=== PATIENT | female | born 1940 | race Two or more races ===

== ENCOUNTER 2024-11-08 18:50 | Emergency (ER) | payer OTHER, MEDICAID, SELFPAY ==
[2024-11-08 19:25] VITALS: PULSE 87; RESP 18; O2SAT 98; BMI 45.3
--- NOTE | 2024-11-08 19:41 | PD.EDRME ---
Rapid Medical Screening Exam RME Arrival date/time: 11/08/24 18:50 Chief Complaint: Urogenital-Female Time Seen by Provider: 11/08/24 19:40 Vital signs: Vital Signs Temperature 98.3 F 11/08/24 19:47 Pulse Rate 77 11/08/24 19:47 Respiratory Rate 15 11/08/24 19:47 Blood Pressure 135/76 H 11/08/24 19:47 Pulse Oximetry (%) 96 11/08/24 19:47 Oxygen Delivery Method Room Air 11/08/24 19:47 RME Narrative: 84-year-old female, brought in by ambulance from home, presents to the emergency department with concerns of urinary retention. Per family, she has been experiencing progressively decreased urinary output, described as scant voiding. The patient reports a persistent sensation of incomplete bladder emptying, noting discomfort and an urge to urinate without significant relief. MD Attestation MD Attestation Scribe Attestation: I, Marin Paredes, am scribing for and in the presence of Dr. Obrien. Provider Notation: Although this document has been carefully reviewed, there may still be some phonetic and other typographical errors. These errors are purely grammatical due to imperfections in the software program and should not be construed in any way to compromise the substance of the patient's medical care during this visit.
[2024-11-08 19:47] VITALS: BP 135/76; PULSE 77; RESP 15; TEMP 36.8; O2SAT 96
[2024-11-08 20:32] LABS: Basophils % (Auto) 1 % (0-2.5); Eosinophils # (Auto) 0.1 Thou/mm3 (0.0-0.5); Eosinophils % (Auto) 4 % (0-10); Hematocrit 42.3 % (36.0-46.0); Immature Granulocytes % (Auto) 1 % (0-0); Immature Granulocytes Auto 0.02 Thou/mm3 (0.00-0.00); Lymphocytes # (Auto) 0.6 Thou/mm3 (1.0-4.8); Lymphocytes % (Auto) 15 % (10-50); Mean Corpuscular HGB Conc 33.1 g/dl (31.0-37.0); Mean Corpuscular Hemoglobin 32.1 pg (25.0-35.0); Mean Corpuscular Volume 97 fL (80-100); Monocytes # (Auto) 0.4 Thou/mm3 (0.0-0.8); Monocytes % (Auto) 9 % (0-12); Neutrophils # (Auto) 2.9 Thou/mm3 (1.8-7.7); Neutrophils % (Auto) 72 % (37-80); Nucleated Red Blood Cell % 0 /100 WBC (0); Platelet Count 175 Thou/mm3 (140-440); RDW Standard Deviation 44.6 fL (36.4-46.3); Red Blood Count 4.36 Miln/mm3 (4.00-5.20)
--- NOTE | 2024-11-08 20:35 | PD.EDFMALE ---
ED Female Urogenital RME/HPI General Chief complaint: Urogenital-Female Stated complaint: URINARY RETENTION Time Seen by Provider: 11/08/24 19:40 Source: EMS Arrival date/time: 11/08/24 18:50 Mode of arrival: EMS Limitations: no limitations RME / HPI RME / HPI Narrative: Dr. Obrien?s Main ED Evaluation: 84-year-old female, brought in by ambulance from home, presents to the emergency department with concerns of urinary retention. Per family, she has been experiencing progressively decreased urinary output, described as scant voiding. The patient reports a persistent sensation of incomplete bladder emptying, noting discomfort and an urge to urinate without significant relief. Related Data Home Medications ?Medication ?Instructions ?Recorded ?Confirmed oxybutynin chloride 5 mg tablet 5 mg PO BID #0 tabs 08/28/14 03/27/24 simvastatin 20 mg tablet (Zocor) 20 mg PO HS #0 tabs 08/28/14 03/27/24 apixaban 5 mg tablet (Eliquis) 5 mg PO BID 05/17/19 03/27/24 hydrocodone 7.5 mg-acetaminophen 1 tab PO QID PRN Pain 05/17/19 03/27/24 325 mg tablet ([place]) carvedilol 3.125 mg tablet (Coreg) 3.125 mg PO BID 03/29/21 03/27/24 losartan 50 mg tablet 100 mg PO QDAY 03/29/21 03/27/24 alendronate 70 mg tablet 70 mg PO QWEEK 03/27/24 03/27/24 furosemide 40 mg tablet (Lasix) 40 mg PO QDAY 03/27/24 03/27/24 gabapentin 300 mg capsule 300 mg PO BID 03/27/24 03/27/24 Previous Rx's ?Medication ?Instructions ?Recorded fluconazole 200 mg tablet 400 mg (2 x 200 mg) PO QDAY [place] 03/29/24 Fever 1 month #60 tabs cephalexin 500 mg capsule 500 mg PO BID #6 caps 04/24/24 cephalexin 500 mg capsule 500 mg PO TID #21 caplets 11/08/24 Allergies Allergy/AdvReac Type Severity Reaction Status Date / Time No Known Allergies Allergy Verified 11/08/24 19:28 Review of Systems Review of Systems Systems Reviewed: All systems reviewed, normal except as documented Past Medical History Past Medical History NEUROLOGIC: Negative Neurological Disorders or Seizures CARDIAC: Positive Cardiac Disorders, Atrial Fibrillation, Hypercholesterolemia, Congestive Heart Failure and Hypertension RESPIRATORY: Negative Chronic Obstructive Pulmonary Disease (COPD) or Asthma GASTROINTESTINAL: Negative Gastrointestinal Disorders GENITOURINARY: Positive Genitourinary Disorders; Negative Renal Disease REPRODUCTIVE: Positive Previous Pregnancies; Negative Breast Cancer or Pelvic Inflammatory Disease MUSCULOSKELETAL: Positive Musculoskeletal Disorders, Arthritis and Osteoporosis ENT: Positive Cataracts ENDOCRINE: Negative Endocrine Disorders, Diabetes Mellitus Type 1 or Diabetes Mellitus Type 2 HEMATOLOGIC: Negative Blood Disorders or Sickle Cell Disease OTHER HISTORY: Negative Autoimmune Disease, Blood Transfusions, Blood Transfusion Reaction, Anesthesia Reactions, Organ Transplant, MRSA or Breast Cancer Family History FAMILY HISTORY: Positive Family Cancer Surgical History SURGICAL: Positive Abdominal Surgery and Joint Replacement; Negative Neurologic Surgery, Mastectomy or Organ Transplant Social History SMOKING STATUS: Unknown if ever smoked ED Exam General Limitations: Present no limitations General appearance: Present alert and in no apparent distress Head Head exam: Present atraumatic Eye Eye exam: Present normal appearance, PERRL and EOMI ENT ENT exam: Present normal exam, normal oropharynx and mucous membranes moist Neck Neck exam: Present normal inspection, full ROM and trachea midline Chest Chest inspection: Present normal inspection and symmetric chest wall rise Respiratory Respiratory exam: Present normal lung sounds bilaterally Cardiovascular Cardiovascular exam: Present regular rate, normal rhythm and normal heart sounds Abdominal Exam Abdominal exam: Present soft and normal bowel sounds Extremities Exam Extremities exam: Present normal inspection and full ROM Back Exam Back exam: Present normal inspection and full ROM Neurological Exam Neurological exam: Present alert, oriented X3 and CN II-XII intact Psychiatric Psychiatric exam: Present normal affect and normal mood Skin Skin exam: Present warm, dry, intact and normal color Course Quality Measures none Orders Category Date Time Status Straight [In and Out Catheter] X1 Care 11/08/24 19:47 Completed CBC Stat Lab 11/08/24 20:14 Completed CMP [Comprehensive Metabolic Panel] Stat Lab 11/08/24 20:14 Completed Urinalysis, C/S if Indicated Stat Lab 11/08/24 20:44 Completed Urine Culture Stat Lab 11/08/24 20:44 Received cefTRIAXone [Rocephin] 1,000 mg Med 11/08/24 21:27 Discontinued SODIUM CHLORIDE 0.9% ([place]) [NS 0.9% ([place])] 50 ml IV X1 Vital Signs Vital signs: Vital Signs Temperature 98.3 F 11/08/24 19:47 Pulse Rate 77 11/08/24 19:47 Respiratory Rate 15 11/08/24 19:47 Blood Pressure 135/76 H 11/08/24 19:47 Pulse Oximetry (%) 96 11/08/24 19:47 Oxygen Delivery Method Room Air 11/08/24 19:47 Urogenital - Female MDM Narrative MDM Narrative:: 2127: The patient?s granddaughter is present in the room and expresses understanding of and comfort with the discharge plan. The patient is clinically stable and feels well enough to go home. No new concerns were raised at this time. Scribe Attestation: I, Marin Paredes, am scribing for and in the presence of Dr. Obrien. Provider Notation: Although this document has been carefully reviewed, there may still be some phonetic and other typographical errors. These errors are purely grammatical due to imperfections in the software program and should not be construed in any way to compromise the substance of the patient's medical care during this visit. Patient data External records reviewed:: [facility] previous records and EMS form Clinical information provided by:: patient, EMS and family Social determinants that could affect healthcare access:: none Patient has the following chronic illnesses:: see PMH How is presenting disease/condition affected by chronic disease/condition?: uneffected by Evaluation data The following diagnostics were reviewed and interpreted by me:: lab results Lab and/or radiology exams considered but not ordered:: na Interpretation Summary: UTI Medications / Prescriptions Medications or Prescriptions considered but not ordered:: na Medication administrations:: Medication Administration History Discontinued Medications Ceftriaxone Sodium 1,000 mg/ (Sodium Chloride) 50 mls @ 100 mls/hr IV X1 ONE Stop: 11/08/24 21:56 Last Infusion: 11/08/24 22:29 Dose: Infused Documented By: Admin: 11/08/24 21:58 Dose: 100 mls/hr Documented By: EF see above, if any Consultations Consultation(s) initiated? (list below): No Diagnosis Urogenital Female Differential Diagnosis: urinary tract infection, ovarian cyst and cystitis Most likely diagnosis given after review of the tests above:: see clinical impression Admission Indicated Admission indicated?: not indicated Admission Request Was there a request for admission?: No Disposition Plan Disposition Plan: Discharge Discharge Attestation Discharge Attestation: The patient and all family members were given an opportunity to ask questions and understood the discharge instructions. Discharge instructions specifically effects, indications for sooner follow up or return to the emergency department, and the expected course of current diagnosis. Patient condition: Stable Discharge Plan Plan Patient Disposition: HOME (Self Care) Patient condition on transfer: Stable Prescriptions/Referrals Prescriptions/Med Rec: New cephalexin 500 mg capsule 500 mg PO TID Qty: 21 0RF No Action simvastatin [Zocor] 20 MG tablet 20 mg PO HS Qty: 0 oxybutynin chloride 5 MG tablet 5 mg PO BID Qty: 0 Eliquis 5 mg Tablet 5 mg PO BID hydrocodone-acetaminophen [[place]] 7.5-325 mg Tablet 1 tab PO QID PRN (Reason: Pain) losartan 50 mg tablet 100 mg PO QDAY Patient Comments: TAKE 1 TABLET BY MOUTH EVERY DAY carvedilol [Coreg] 3.125 mg Tablet 3.125 mg PO BID furosemide [Lasix] 40 mg Tablet 40 mg PO QDAY gabapentin 300 mg capsule 300 mg PO BID Patient Comments: TAKE 1 CAPSULE BY MOUTH TWICE A DAY alendronate 70 mg tablet 70 mg PO QWEEK Patient Comments: PLEASE SEE ATTACHED FOR DETAILED DIRECTIONS fluconazole 200 mg tablet 400 mg PO QDAY 30 Days Qty: 60 2RF cephalexin 500 mg capsule 500 mg PO BID Qty: 6 0RF Problem List Clinical Impression: Urinary tract infection Patient/Caregiver Discharge Instructions Education Materials: Urinary Tract Infections in Women Additional Instructions: 1. DO READ your discharge instructions as these contain important information concerning your medical care. 2. If medication has been prescribed for your condition, fill the prescription as soon as possible and follow the directions on the medication. 3. RETURN AT ONCE TO THE EMERGENCY DEPARTMENT if you have any problems or concerns. These include but are not limited to fever, worsening pain(belly, chest, head, etc?), shortness of breath, inability to tolerate food and water, or any condition that makes you question your well-being. Also, if your symptoms do not improve in the next 12-24 hours, return to the ER or seek medical care immediately. Please follow-up with her primary care in 72 hours to get the results of the urine culture 4. Be sure to follow up with your regular physician or specialist as instructed at discharge as this is the best way to ensure that you receive the very best of care. If you do not have a primary care physician, please contact a physician group and make an appointment. 5. Please visit [employer] for coupons regarding your prescriptions. It is a free service for you to use and can help reduce the cost of your medication. We would like to thank you for coming today and our hope is that we served you and your family well during your stay Print Language: [place] Stand Alone Forms: [employer]., Patient Portal Info Letter
--- NOTE | 2024-11-08 20:48 | PC.NURSE ---
250ml urine output
[2024-11-08 20:49] LABS: Collection Type, Urine Catheter
[2024-11-08 20:57] LABS: Alanine Aminotransferase 12 U/L (10-49); Albumin/Globulin Ratio 1.4 (1.2-2.2); Alkaline Phosphatase 107 U/L (46-116); Anion Gap 8 (7-16); Aspartate Amino Transferase 23 U/L (0-34); BUN/Creatinine Ratio 48 Ratio (12-20); Bilirubin,Total 0.7 mg/dL (0.3-1.2); Blood Urea Nitrogen 24 mg/dL (9-23); Calcium 9.9 mg/dL (8.3-10.6); Calcium (Corrected) 9.9 mg/dL (8.5-10.1); Carbon Dioxide 34.2 mMol/L (20.0-31.0); Chloride 102 mMol/L (98-107); Creatinine (Component) 0.5 mg/dL (0.6-1.3); Estimated Creatinine Clearance 102.8 mL/min (>60); Globulin 2.8 gm/dL (2.3-3.5); Glucose 117 mg/dL (74-106); Osmolality,Calculated 291 (275-295); Potassium 3.9 mMol/L (3.4-5.1); Sodium 144 mMol/L (136-145); Total Protein 6.8 gm/dL (5.7-8.2); eGFR > 60 See Note
[2024-11-08 21:05] LABS: Bilirubin,Urine Negative (Negative); Blood,Urine Negative (Negative); Clarity,Urine Clear (Clear/Hazy); Color,Urine Lt-Yellow (Lt Yel-Yel); Glucose, Urine Negative (Negative); Ketones,Urine Negative (Negative); Leukocyte Esterase,Urine Positive (Negative); Nitrite,Urine Positive (Negative); PH,Urine 7.5 (5.0-7.0); Protein,Urine Negative (Neg - Trace); RBC,Urine 1 /hpf (0-3); Specific Gravity,Urine 1.009 (1.001-1.035); Squamous Epithelial Cell,Urine < 1 /hpf (0-5); WBC,Urine 40 /hpf (0-5)
[2024-11-08 21:07] LABS: Culture Indicated,Urine Yes
[2024-11-08 21:38] VITALS: BP 120/77; PULSE 72; RESP 18; O2SAT 97
[2024-11-08] MEDS: cefTRIAXone 1,000 MG in SODIUM CHLORIDE 0.9% (Popper) 50 ML 100 MG IV (21:58)
[2024-11-08 23:01] VITALS: BP 126/84; PULSE 72; RESP 18; TEMP 36.6; O2SAT 98
== END 2024-11-08 23:02 | disposition home or self-care (01) ==
LOC: SERX 22:18
PROVIDERS: Emergency Provider Emergency Medicine; PCP Family Medicine
DX: N39.0 Urinary tract infection, site not specified (principal); I11.0 Hypertensive heart disease with heart failure; I50.9 Heart failure, unspecified; E78.00 Pure hypercholesterolemia, unspecified; I48.91 Unspecified atrial fibrillation
CPT/HCPCS: 51701; 36415; 80053; 81001; 85025; 87077; 87086; 87186; 96365; 99284; J0696; J7050